=== PATIENT | male | born 1960 | race Hispanic/Latino ===

== ENCOUNTER → 2023-05-02 | Outpatient (CLI) | payer MEDICARE ==
[2023-05-02 16:28] LABS: POTASSIUM 3.2 mmol/L (3.5-5.1)
== END | disposition home or self-care (01) ==
LOC: LAB 14:45
PROVIDERS: ATTEND Student in an Organized Health Care Education/Training Program
DX: I10 Essential (primary) hypertension (principal)
CPT/HCPCS: 36415; 80048

== ENCOUNTER → 2023-05-12 | Outpatient (CLI) | payer MEDICARE ==
[~2023-05-12] MED LIST: IOHEXOL 350 MG/ML 100ML INFUS..BTL IV ONE
== END | disposition home or self-care (01) ==
LOC: RAH 11:22 → EDUNIT# 11:30
PROVIDERS: ATTEND Student in an Organized Health Care Education/Training Program
DX: R07.9 Chest pain, unspecified (principal)
CPT/HCPCS: 75574; Q9967

== ENCOUNTER 2025-07-30 10:36 | Day surgery (SDC) | payer MEDICARE, MEDICAID ==
[~2025-07-30] VITALS: Ht 180.3 cm; Wt 84.4 kg
[2025-07-30] VITALS (11 sets, daily range): BP systolic 130–160; BP diastolic 76–95; PULSE 53–60; RESP 14–20; TEMP 97.4–98.1
[2025-07-30] MEDS: 0.9%NACL 1000ML 1,000 ML IV ONE (11:02)
--- NOTE | 2025-07-30 11:44 | NUR ---
Dr. Go called nurse and stated he will be coming to do his case at 1245pm today
[2025-07-30] MEDS ORDERED: LIDOCAINE PF 100MG/5ML (2%) SYRINGE 5ML ONE (14:17)
== END 2025-07-30 15:36 | disposition home or self-care (01) ==
LOC: ENDO 10:36 → DAH 10:36 → ENDO 15:36
PROVIDERS: ATTEND Internal Medicine Gastroenterology
DX: R19.5 Other fecal abnormalities (principal); K57.30 Diverticulosis of large intestine without perforation or abscess without bleeding; K64.0 First degree hemorrhoids; I25.10 Atherosclerotic heart disease of native coronary artery without angina pectoris; I10 Essential (primary) hypertension; E78.5 Hyperlipidemia, unspecified; E11.9 Type 2 diabetes mellitus without complications; G47.30 Sleep apnea, unspecified; G43.909 Migraine, unspecified, not intractable, without status migrainosus; F41.9 Anxiety disorder, unspecified; F32.A Depression, unspecified; Z86.0100 Personal history of colon polyps, unspecified; Z86.711 Personal history of pulmonary embolism; Z86.718 Personal history of other venous thrombosis and embolism; Z82.49 Family history of ischemic heart disease and other diseases of the circulatory system; Z79.899 Other long term (current) drug therapy; Z98.890 Other specified postprocedural states
CPT/HCPCS: 45378; J7030; J2003; J2704; J3490; A4620; A4215; A4223; A4222; A4221; A4663; A4606